=== PATIENT | male | born 1965 | race Caucasian/White ===

== ENCOUNTER 2019-11-20 10:59 | Emergency (ER) | payer OTHER ==
[2019-11-20] MEDS ORDERED: Aspirin 81 MG Tab.Chew PO ONE (11:32)
[2019-11-20] MEDS ORDERED: Nitroglycerin 0.4 MG Tab.SL SL ONE ×2 (11:32→12:02)
[2019-11-20] MEDS ORDERED: Sodium Chloride 0.9% 1,000 ML IV SCH (11:40)
--- NOTE | 2019-11-20 11:42 | EDM.PDOC ---
ED HPI GENERAL MEDICAL PROBLEM - General Chief Complaint: Chest Pain Stated Complaint: CHEST PAIN Time Seen by Provider: 11/20/19 11:10 Source of Information: Reports: Patient History Limitations: Reports: No Limitations - History of Present Illness INITIAL COMMENTS - FREE TEXT/NARRATIVE: states he was at work talking to someone when he developed sudden onset of pressure in the chest about 5/10 , has allergic bronchitis and thought this was the case , tried to cough this way as usual but did not go away admits to walking about 1 mile earlier pain has reduced from 5/10 to 3/10 states he has history of elevated calcium score and was asked to come in if he ever feels any chest pain Christianson never had OR but has elevated cholesterol and he is on a statin Onset: Sudden Onset Date: 11/20/19 Duration: Hour(s): (one) Location: Reports: Chest Quality: Reports: Pressure Severity: Mild Improves with: Reports: Rest Worsens with: Reports: Movement Associated Symptoms: Reports: Malaise, Weakness Treatments 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[employer]: Reports: Intubation Chest Pain Score (Numeric/FACES): 2 - Related Data Allergies Allergy/AdvReac Type Severity Reaction Status Date / Time No Known Allergies Allergy Verified 11/20/19 11:26 Home Meds: Home Meds ALPRAZolam [Alprazolam] 1 mg PO BEDTIME PRN 11/20/19 [History] Aspirin [Halfprin] 81 mg PO DAILY 11/20/19 [History] Rosuvastatin Calcium 10 mg PO DAILY 11/20/19 [History] buPROPion HCl [Bupropion Xl] 150 mg PO DAILY 11/20/19 [History] lamoTRIgine [Lamotrigine ER] 300 mg PO BEDTIME 11/20/19 [History] ED ROS GENERAL - Review of Systems Review Of Systems: See Below Constitutional: Reports: Malaise, Fatigue HEENT: Reports: No Symptoms Respiratory: Reports: Cough. Denies: Shortness of Breath Cardiovascular: Reports: Chest Pain. Denies: Dyspnea on Exertion, Lightheadedness, Orthopnea, Palpitations Endocrine: Reports: No Symptoms GI/Abdominal: Reports: No Symptoms Musculoskeletal: Reports: No Symptoms Skin: Reports: No Symptoms Neurological: Reports: No Symptoms Psychiatric: Reports: No Symptoms ED EXAM, GENERAL - Physical Exam Exam: See Below Exam Limited By: No Limitations General Appearance: Alert, WD/WN, No Apparent Distress Eye Exam: Bilateral Eye: EOMI Ears: Normal External Exam Ear Exam: Bilateral Ear: TM normal Nose: Normal Inspection Throat/Mouth: Normal Inspection Head: Atraumatic Neck: Supple, Non-Tender Respiratory/Chest: Lungs Clear Cardiovascular: Regular Rate, Rhythm, No Edema GI/Abdominal: Normal Bowel Sounds, Soft, Non-Tender Back Exam: Normal Inspection Extremities: Normal Inspection, Normal Range of Motion Neurological: Alert, Oriented, CN II-XII Intact. No: Normal Gait EKG INTERPRETATION EKG Date: 11/20/19 Rhythm: NSR Sacul: Normal P-Wave: Present QRS: Normal ST-T: Normal QT: Normal Course - Vital Signs Last Recorded V/S: Last Vital Signs Temp 36.6 C 11/20/19 11:15 Pulse 68 11/20/19 11:00 Resp 15 11/20/19 12:00 BP 105/65 11/20/19 12:00 Pulse Ox 98 11/20/19 11:45 - Orders/Labs/Meds Orders: Active Orders 24 hr Category Date Time Status EKG Documentation Completion [RC] ASDIRECTED Care 11/20/19 11:45 Active EKG Documentation Completion [RC] ASDIRECTED Care 11/20/19 14:30 Active Chest 2V [CR] Stat Exams 11/20/19 11:25 Taken EKG 12 Lead [EK] Routine Ther 11/20/19 11:44 Ordered EKG 12 Lead [EK] Routine Ther 11/20/19 14:30 Ordered Labs: Laboratory Tests 11/20/19 11/20/19 11/20/19 Range/Units 11:30 11:30 11:30 WBC 6.2 (4.5-12.0) X10-3/uL RBC 4.55 (4.30-5.75) x10(6)uL Hgb 14.1 (13.5-17.8) g/dL Hct 41.8 (30.0-51.3) % MCV 91.9 (80-96) fL MCH 31.0 (27.7-33.6) pg MCHC 33.7 (32.2-35.4) g/dL RDW 12.2 (11.5-15.5) % Plt Count 154 (125-369) X10(3)uL MPV 7.5 (7.4-10.4) fL Neut % (Auto) 61.0 (46-82) % Lymph % (Auto) 26.0 (13-37) % [place] % (Auto) 10.0 (4-12) % Eos % (Auto) 2 (1.0-5.0) % Baso % (Auto) 1 (0-2) % Neut # (Auto) 3.9 (1.6-8.3) # Lymph # (Auto) 1.6 (0.6-5.0) # [place] # (Auto) 0.6 (0.0-1.3) # Eos # (Auto) 0.1 (0.0-0.8) # Baso # (Auto) 0.0 (0.0-0.2) # PT 10.8 (8.7-11.1) INR 1.11 (0.89-1.13) Sodium (135-145) mmol/L Potassium (3.5-5.3) mmol/L Chloride (100-110) mmol/L Carbon Dioxide (21-32) mmol/L BUN (7-18) mg/dL Creatinine (0.70-1.30) mg/dL Est Cr Clr Drug Dosing mL/min Estimated GFR (MDRD) (>60) BUN/Creatinine Ratio (9-20) Glucose (80-116) mg/dL Calcium (8.6-10.2) mg/dL Troponin I 5.8 (4.0-60.3) pg/mL 11/20/19 11/20/19 Range/Units 11:30 14:55 WBC (4.5-12.0) X10-3/uL RBC (4.30-5.75) x10(6)uL Hgb (13.5-17.8) g/dL Hct (30.0-51.3) % MCV (80-96) fL MCH (27.7-33.6) pg MCHC (32.2-35.4) g/dL RDW (11.5-15.5) % Plt Count (125-369) X10(3)uL MPV (7.4-10.4) fL Neut % (Auto) (46-82) % Lymph % (Auto) (13-37) % [place] % (Auto) (4-12) % Eos % (Auto) (1.0-5.0) % Baso % (Auto) (0-2) % Neut # (Auto) (1.6-8.3) # Lymph # (Auto) (0.6-5.0) # [place] # (Auto) (0.0-1.3) # Eos # (Auto) (0.0-0.8) # Baso # (Auto) (0.0-0.2) # PT (8.7-11.1) INR (0.89-1.13) Sodium 143 (135-145) mmol/L Potassium 4.0 (3.5-5.3) mmol/L Chloride 106 (100-110) mmol/L Carbon Dioxide 26 (21-32) mmol/L BUN 19 H (7-18) mg/dL Creatinine 0.8 (0.70-1.30) mg/dL Est Cr Clr Drug Dosing 106.46 mL/min Estimated GFR (MDRD) > 60 (>60) BUN/Creatinine Ratio 23.8 H (9-20) Glucose 95 (80-116) mg/dL Calcium 8.7 (8.6-10.2) mg/dL Troponin I 5.4 (4.0-60.3) pg/mL Meds: Medications Discontinued Medications Generic Name Dose Route Start Last Admin Trade Name Freq PRN Reason Stop Dose Admin Aspirin 324 mg 11/20/19 11:32 11/20/19 11:40 Aspirin PO 11/20/19 11:33 324 mg ONETIME ONE Administration Al Hydroxide/Mg Hydroxide 15 0 ml 11/20/19 12:02 11/20/19 12:10 ml/ Lidocaine HCl 15 ml PO 11/20/19 12:03 30 ml ONETIME ONE Administration Nitroglycerin 0.4 mg 11/20/19 11:32 11/20/19 11:45 Nitrostat SL 11/20/19 11:33 0.4 mg ONETIME ONE Administration Nitroglycerin 0.4 mg 11/20/19 12:02 11/20/19 11:55 Nitrostat SL 11/20/19 12:03 0.4 mg ONETIME ONE Administration - Re-Assessments/Exams Free Text/Narrative Re-Assessment/Exam: 11/20/19 15:35 initial troponin , labs and EKG are normal EKG and troponin on repeat 3 hrs later still negative Symptoms has resolved pt will be discharged home to follow up with PCP Departure - Departure Time of Disposition: 15:30 Disposition: Home, Self-Care 01 Condition: Fair Clinical Impression: Atypical chest pain Instructions: Nonspecific Chest Pain, [id number], Angina Pectoris, Easy-to- Read Forms: ED Department Discharge Additional Instructions: 1) continue with Aspirin 324mg daily 2) make appt to see your PCP for Follow up in 1-2 day s 3) Return to ER if symptoms occur again Sepsis Event Note - Evaluation Sepsis Screening Result: No Definite Risk - Focused Exam Vital Signs: Vital Signs Temp Pulse Resp BP BP Pulse Ox 11/20/19 12:00 15 105/65 11/20/19 11:55 102/63 11/20/19 11:45 17 113/64 113/64 98 11/20/19 11:30 16 120/71 11/20/19 11:15 36.6 C 17 123/77 11/20/19 11:00 68 16 127/73 100 Date Exam was Performed: 11/20/19 Time Exam was Performed: 15:34 - My Orders Last 24 Hours: My Active Orders 11/20/19 11:25 Chest 2V [CR] Stat 11/20/19 11:44 EKG 12 Lead [EK] Routine 11/20/19 11:45 EKG Documentation Completion [RC] ASDIRECTED 11/20/19 14:30 EKG Documentation Completion [RC] ASDIRECTED EKG 12 Lead [EK] Routine - Assessment/Plan Last 24 Hours: My Active Orders 11/20/19 11:25 Chest 2V [CR] Stat 11/20/19 11:44 EKG 12 Lead [EK] Routine 11/20/19 11:45 EKG Documentation Completion [RC] ASDIRECTED 11/20/19 14:30 EKG Documentation Completion [RC] ASDIRECTED EKG 12 Lead [EK] Routine
[2019-11-20] MEDS ORDERED: Alum Hydroxide/Mag Hydroxide 15 ML, Lidocaine 2% 15 ML PO ONE ×2 (12:02)
[2019-11-21] MEDS ORDERED: Sodium Chloride 0.9% 10 ML Syringe FLUSH PRN (07:06)
== END 2019-11-20 16:10 | disposition home or self-care (01) ==
LOC: FB.ED 10:59
DX: R07.89 Other chest pain (principal); Z79.82 Long term (current) use of aspirin
CPT/HCPCS: 36415; 71046; 80048; 84484; 85025; 85610; 93005; 96360; 99285; A9270; J7030